=== PATIENT | female | born 1940 | race Caucasian/White ===

== ENCOUNTER 2019-05-05 07:11 | Inpatient (IN) ==
--- NOTE | 2019-05-05 07:46 | Emergency Department Note ---
Fall HPI - General Chief Complaint: Fall Stated Complaint: Fall Yesterday; Right Hip Pain Time Seen by Provider: 05/05/19 07:36 Source: patient, EMS Mode of arrival: EMS Limitations: no limitations - History of Present Illness HPI Narrative: 78-year-old female comes [facility] from [facility] [place] for right hip pain. Apparently she fell yesterday after walking and tripping. She did not hit her head or lose consciousness. She denies any neck pain. Was sent over to [facility] for evaluation and then sent back. She do es have some underlying dementia and so cannot give me most complete history but is able to tell me whether or not she is in pain. She is also having pain at the right foot which was x-rayed yesterday but I do not have results of that - Related Data Allergies Allergy/AdvReac Type Severity Reaction Status Date / Time shellfish derived Allergy Unknown Unknown Verified 05/05/19 07:12 Review of Systems All systems ED: reviewed and negative except as stated. Fall PMH - Past Medical History Attestation: Yes: The following information was validated with the patient. Medical history: Reports: CVA, DM, hypertension, hypothyroidism Surgical history ED: Reports: other (nephrectomy) - Social History smoking status: Never smoker Physical Exam No acute distress resting. I did examine her entire right lower leg she does have tenderness at the forefoot. I do not however see any excessive edema contusion or other signs of trauma relative to the left. Her left hip area is also tender laterally. Again I do not see any deformity there. Normal posterior tibialis pulse. Limitations: no limitations Course Vital Signs Temperature 98.2 F 05/05/19 07:13 Pulse Rate 91 H 05/05/19 07:13 Respiratory Rate 18 05/05/19 07:13 Blood Pressure 145/61 05/05/19 07:13 Pulse Oximetry (%) 96 05/05/19 07:13 Temperature 98.2 F 05/05/19 07:13 Pulse Rate 93 H 05/05/19 08:46 Respiratory Rate 18 05/05/19 07:13 Blood Pressure 156/72 05/05/19 08:46 Pulse Oximetry (%) 94 05/05/19 08:46 Fall - Lab Data Result diagrams: 05/05/19 08:15 05/05/19 08:15 - Radiology Data Radiology results reviewed: Yes I reviewed the patient's radiology results. Right hip x-ray shows intertrochanteric fracture with displacement Chest x-ray shows no acute infiltrate but perhaps CHF with increased pulmonary vascular markings Second phalanx fracture at the right foot is noted - EKG Data EKG attestation: Yes I reviewed and interpreted this EKG. 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 I discussed these findings with her Paulino Paz. He is agreeable with proceeding with surgery so orthopedics will be contacted, Dr. Warren Right foot fractures also noted of the second phalanx Dr. Warren agreed to consult on the patient if hospitalist will admit-plan on repairing that hip either tonight or tomorrow. I discussed the case with Dr. Evans, hospitalist. He agreed to accept the patient Disposition: Xfer As Inpt ([facility]) Condition: Fair Referrals: Lex Warren MD [Physician] - Андрей Evans MD [Physician] -
--- NOTE | 2019-05-05 08:46 | XRay Report ---
CLINICAL INFORMATION: Trauma COMPARISON: None. FINDINGS: A severely comminuted intertrochanteric fracture right hip with moderate coxa vera angulation. Femoral diaphyseal fragment is displaced 1 cm laterally and anteriorly. Mild degeneration noted and moderate SI degeneration. No soft tissue abnormality IMPRESSION: Severely comminuted intertrochanteric fracture right hip with mild displacement and coxa vera angulation Interpreted and Authenticated by: Arsen Martines 05/05/19
--- NOTE | 2019-05-05 08:47 | XRay Report ---
CLINICAL INFORMATION: Trauma COMPARISON: None. FINDINGS: The heart size, mediastinum and pulmonary vessels are unremarkable. The lungs are clear. There are no effusions. The bones and soft tissues are within normal limits. IMPRESSION: Normal chest. Interpreted and Authenticated by: Arsen Mratines 05/05/19
--- NOTE | 2019-05-05 08:52 | XRay Report ---
CLINICAL INFORMATION: Trauma COMPARISON: None. FINDINGS: Marked diffuse soft tissue swelling appreciated likely posttraumatic edema. There appears be a poorly defined comminuted fracture of the second proximal phalanx with minimal displacement and slight impaction. No other fracture identified. Hammertoe deformities in the second through fifth digits noted. There is severe degenerative change in the first and fourth MTT joints and mild degenerative change in the interphalangeal joints. Pes planus noted. Ossification of the Achilles and plantar tendon insertions appreciated IMPRESSION: 1. Poorly defined acute appearing fracture through the second proximal phalanx with slight impaction and angulation. Please correlate with point tenderness in this area. 2. Marked diffuse soft tissue swelling likely posttraumatic edema 3. Hammertoe deformities second through fifth digits 4. Severe degenerative change in the MTT and mild degenerative change in all interphalangeal joints Interpreted and Authenticated by: Arsen Martines 05/05/19
[2019-05-05 09:23] LABS: Basophils # (Auto) 0 K/mcL (0.0-0.3); Basophils % (Auto) 0.3 % (0.0-2.0); Eosinophils # (Auto) 0.5 K/mcL (0.0-0.7); Eosinophils % (Auto) 5.5 % (0.0-7.0); Granulocytes % (Auto) 76.7 % (38.0-78.0); Hematocrit 26.4 % (36.0-48.0); Hemoglobin 8.4 g/dL (12.0-15.0); Lymphocytes # (Auto) 1.1 K/mcL (1.5-4.8); Lymphocytes % (Auto) 12.3 % (15.5-49.0); Mean Cell Volume 91.3 fL (80.0-100.0); Mean Platelet Volume 7.7 fL (7.4-10.4); Monocytes # (Auto) 0.5 K/mcL (0.1-0.9); Monocytes % (Auto) 5.2 % (1.0-12.0); Platelet Count 378 K/mcL (140-440); RBC 2.88 M/mcL (4.00-5.20); Red Cell Distribution Width 16.2 % (11.5-14.5); WBC 9.1 K/mcL (4.5-11.0)
[2019-05-05 09:32] LABS: INR 1.1 (0.9-1.1); Prothrombin Time 14.6 sec (11.9-14.5)
[2019-05-05 09:48] LABS: ALT/SGPT 8 U/l (0-40); AST/SGOT 10 U/l (0-37); Albumin 2.8 gm/dL (3.2-5.2); Albumin/Globulin Ratio 0.9 (1.0-2.3); Alkaline Phosphatase 61 U/L (39-117); Bilirubin,Total 0.3 mg/dL (0.0-1.0); Blood Urea Nitrogen 19 mg/dl (8-23); Calcium 8.4 mg/dl (8.6-10.4); Carbon Dioxide 25 mmol/L (22-30); Chloride 108 mmol/L (96-108); Globulin 3.1 gm/dL (2.2-3.7); Glomerular Filtration Rate 44; Glucose 177 mg/dL (70-105); Potassium 4.6 mmol/L (3.3-5.1); Sodium 142 mmol/L (133-145)
[2019-05-05] MEDS ORDERED: oxyCODONE HCL 5 MG TABLET PO PRN (11:46)
[2019-05-05] MEDS ORDERED: ACETAMINOPHEN 325 MG TABLET PO SCH (11:46)
[2019-05-05] MEDS ORDERED: ONDANSETRON 4 MG/2 ML VIAL IV PRN (11:46)
[2019-05-05] MEDS ORDERED: ALBUTEROL SULFATE 2.5 MG/3 ML NEBULIZER NEB PRN (11:46)
[2019-05-05] MEDS ORDERED: HYDROmorphone 2 MG/ML VIAL IV PRN (11:46)
[2019-05-05] MEDS ORDERED: NALOXONE HCL 0.4 MG/ML VIAL IV PRN (11:46)
[2019-05-05] MEDS: HEPARIN 5,000 UNIT/ML VIAL SQ SCH ×2 (12:23→21:26)
[2019-05-05] MEDS ORDERED: DEXTROSE 31 GM ORAL.SUSP PO PRN (13:05)
[2019-05-05] MEDS ORDERED: DEXTROSE 50% 50 ML VIAL IV PRN (13:05)
[2019-05-05 13:33] LABS: Appearance,Urine CLOUDY; Bacteria,Urine MANY /hpf (0); Bilirubin,Urine NEG (NEG); Color,Urine YELLOW; Culture Indicated,Urine NO; Glucose,Urine (UA) NEGATIVE (NEG); Ketones,Urine NEG (NEG); Leukocyte Esterase,Urine 250 /uL (NEG); Nitrate,Urine NEG (NEG); Protein,Urine 30 mg/dL (NEG); Specific Gravity,Urine 1.015 (1.000-1.035); Urine Blood 0.2 mg/dL (<0.03); Urine RBC 8 /hpf (0-1); Urine Squamous Epithelial Cell 12 /hpf (0-4); Urine WBC > 182 /hpf (0-4); Urobilinogen,Urine NEG (NEG)
--- NOTE | 2019-05-05 13:39 | Internal Med History&Physical ---
Medical - H&P: HPI Patient information: Note initiated : 05/05/19 at 1:36 pm Service Date, if different from initiated Date: [] Patient: Kaitlin Paz a 78 y/o F admitted on 05/05/19 for Fall Yesterday; Right Hip Pain. Chief Complaint: [] History of present illness: Ms. Paz is a 78 year old F with history of diabetes, history of CVA, questionable memory issues presents to the emergency room today from her halfway for evaluation of left hip pain. It seems that the patient fell down yesterday which was a mechanical fall. I think she was evaluated at an urgent care center, and ankle x-ray was done which was negative and she was sent back to the halfway. Because of the pain and inability to ambulate well the patient was sent to the emergency room here. The patient denies any injury to the head, denies any injury anywhere else. She has left hip pain which is worse with activity pain is moderate at this time. Nonradiating. Improved with pain meds worse with activity. In the emergency room patient on presentation was hemodynamically stable, labs show WBC count of 9, hemoglobin 8.4, it was 8.3 at discharge from [facility] around 10 days ago. Platelets 378, INR 1.1, chemistries show a creatinine of 1.2 this was 0.912 days ago. UA is positive leuk estearse, wbc EKG shows sinus rhythm nonspecific T wave changes in the lateral leads. Chest x-ray is negative Hip x-ray shows fracture of the femur neck left Patient is being admitted to the hospital for further management, Dr. Mendes has evaluated the patient plans for surgery tomorrow The patient was at [facility] for nephrectomy, she had xanthogranulomatous pyelonephritis, left side, she underwent a laparoscopic nephrectomy, postop was complicated with hemorrhage, needing around 5 to 6 units of blood and FFP. At the time of discharge patient was hemodynamically stable and sent to a halfway. Before this surgery, the patient notes that she was fairly active, able to do all her activities of daily living, able to climb a 1-2 flights of stairs without any chest pain or significant shortness of breath. She admits to having a history of stroke, no history of heart failure no history of myocardial infarction, she does have mild renal dysfunction but her creatinine is less than 2. She is diabetic. All systems: reviewed and no additional remarkable complaints except as stated (as per hpi rest neg) Medical - H&P: PMH Medical history: Xanthogranulomatous pyelonephritis, status post left nephrectomy Diabetes Chronic lower extremity edema History of CVA Depression History of recurrent UTIs Hypothyroidism Surgical history: Status post left nephrectomy Family history: reviewed and not pertinent Social history: Presently lives in a halfway but previously was residing with her son-in-law and daughter Non-smoker No recreational drug use Medical - H&P: Meds Home Medications Medication Instructions Recorded Confirmed Type Aspirin [Lite Coat Aspirin] 81 mg PO DAILY 05/05/19 05/05/19 History Benazepril [Lotensin] 10 mg PO HS 05/05/19 05/05/19 History Ciprofloxacin [Cipro] 500 mg PO BID 05/05/19 05/05/19 History Citalopram [Celexa] 20 mg PO HS 05/05/19 05/05/19 History Docusate Sodium 250 mg PO DAILYP PRN 05/05/19 05/05/19 History Levothyroxine [Synthroid] 100 mcg PO DAILY 05/05/19 05/05/19 History Methenamine Hippurate [Hiprex] 1 gm PO BID 05/05/19 05/05/19 History Venlafaxine [Effexor Xr] 150 mg PO DAILY 05/05/19 05/05/19 History metFORMIN HCL [Metformin HCl] 500 mg PO BID 05/05/19 05/05/19 History Allergies Allergy/AdvReac Type Severity Reaction Status Date / Time shellfish derived Allergy Unknown Unknown Verified 05/05/19 07:12 Medical - H&P: Exam - Constitutional Vitals: Temp Pulse Resp BP Pulse Ox 98.2 F 90 20 153/69 95 05/05/19 12:00 05/05/19 12:00 05/05/19 12:00 05/05/19 12:00 05/05/19 12:00 Exam: GENERAL: The patient is a well-developed, well-nourished in no apparent distress. Is alert and oriented x3. VITAL SIGNS: Reviewed and as noted elsewhere. HEENT: Head is normocephalic and atraumatic. Extraocular muscles are intact. Pupils are equal, round, and reactive to light. Nares appeared normal. Mouth appears any without lesions. Mucous membranes are dry. NECK: Normal to inspection, Supple, No lymphadenopathy or thyromegaly. LUNGS: Air entry equal on both sides, no wheezing, crackles or rhonchi noted. No accessory muscles of respiration, on anterior and lateral chest side HEART: Regular rate and rhythm normal, S1 and S2 heard, no Gallop, S3 or Rub Noted, No Gross murmur heard. ABDOMEN: Soft, nontender, and nondistended. Positive bowel sounds. No hepatosplenomegaly was noted. EXTREMITIES: No cyanosis, clubbing, rash, lesions or edema. NEUROLOGIC: Cranial nerves II through XII are grossly intact. Motor and Sensory System Grossly Intact, limited exam due to fracture PSYCHIATRIC: Normal affect, Normal Mood. Appropriate Behavior. SKIN: No ulceration or wounds noted, No jaundice, No rash noted. Medical - H&P: Reslt - Labs CBC & Chem 7: 05/05/19 08:15 05/05/19 08:15 Labs: Short CBC 05/05/19 Range/Units 08:15 WBC 9.1 (4.5-11.0) K/mcL Hgb 8.4 L (12.0-15.0) g/dL Hct 26.4 L (36.0-48.0) % Plt Count 378 (140-440) K/mcL BMP 05/05/19 08:15 Sodium 142 Potassium 4.6 Chloride 108 Carbon Dioxide 25 BUN 19 Creatinine 1.2 H Glucose 177 H Calcium 8.4 L Liver Function 05/05/19 Range/Units 08:15 Total Bilirubin 0.3 (0.0-1.0) mg/dL AST 10 (0-37) U/l ALT 8 (0-40) U/l Alkaline Phosphatase 61 (39-117) U/L Albumin 2.8 L (3.2-5.2) gm/dL Urine 05/05/19 Range/Units 12:26 Urine Color Yellow Urine Appearance Cloudy Urine pH 5.0 (5.0-9.0) Ur Specific Fraser 1.015 (1.000-1.035) Urine Protein 30 A (NEG) mg/dL Urine Glucose (UA) Negative (NEG) mg/dL Medical - H&P: A/P - Narrative A/P Narrative: A/P Hip fracture Left side -Plan for Surgery in AM Pre op risk -RCRI 2, given age, cva, DM, patient is high risk for cardiovascular complications in periop period, reviewed same with the patient -to continue asa post op -patient has no modifiable risk factors, no further testing needed before surgery -MET was > 4 before her nephrectomy surgery last month. Anemia -Hb low, but stable, did loose quite a bit of blood during her stay for nephrectomy, will monitor, she may need blood transfusion post op, presently no such indication. DM -SSI insulin for glucose control acute kidney injury -creat is 1.2, was 0.9, slight worsening, IV hydration -single kidney stays H/o Recurrent UTI, UA suggestive of UTI -IV Rocephin for now, smita given plan for hip surgery, will send for culture Malnutrition -albumin is 2.8, but was 2.2 12 days ago, improving Hypothyroidism/Depression -resume home meds once able Diet carb consistent full code, npo mn DVT hep sq,for now
[2019-05-05] MEDS: ACETAMINOPHEN 500 MG TABLET PO SCH ×4 (13:40→21:27)
[2019-05-05] MEDS: 0.9 % SODIUM CHLORIDE 10 ML SYRINGE IV SCH ×2 (13:40→21:36)
[2019-05-05] MEDS: 0.45 % SODIUM CHLORIDE 1,000 ML IV SCH (15:02)
[2019-05-05] MEDS: cefTRIAXone 1 GM VIAL IV SCH (15:02)
[2019-05-05] MEDS ORDERED: 0.9 % SODIUM CHLORIDE 250 ML IV SCH (15:30)
[2019-05-05] MEDS: INSULIN LISPRO 1 UNIT/0.01 ML UNIT SQ SCH ×2 (16:48→21:27)
[2019-05-05] MEDS ORDERED: SENNOSIDES 1 TABLET PO SCH (21:00)
[2019-05-06] MEDS: 0.9 % SODIUM CHLORIDE 10 ML SYRINGE IV SCH ×3 (04:36→21:14)
[2019-05-06] MEDS: 0.45 % SODIUM CHLORIDE 1,000 ML IV SCH (04:36)
[2019-05-06 06:09] LABS: Basophils # (Auto) 0.1 K/mcL (0.0-0.3); Basophils % (Auto) 0.8 % (0.0-2.0); Eosinophils # (Auto) 0.9 K/mcL (0.0-0.7); Eosinophils % (Auto) 12.3 % (0.0-7.0); Granulocytes % (Auto) 62.8 % (38.0-78.0); Hematocrit 26.2 % (36.0-48.0); Hemoglobin 8.4 g/dL (12.0-15.0); Lymphocytes # (Auto) 1.3 K/mcL (1.5-4.8); Lymphocytes % (Auto) 17.5 % (15.5-49.0); Mean Cell Volume 91.8 fL (80.0-100.0); Mean Platelet Volume 7.5 fL (7.4-10.4); Monocytes # (Auto) 0.5 K/mcL (0.1-0.9); Monocytes % (Auto) 6.6 % (1.0-12.0); Platelet Count 301 K/mcL (140-440); RBC 2.85 M/mcL (4.00-5.20); Red Cell Distribution Width 16.3 % (11.5-14.5); WBC 7.5 K/mcL (4.5-11.0)
[2019-05-06 06:40] LABS: ALT/SGPT 7 U/l (0-40); AST/SGOT 11 U/l (0-37); Albumin 2.4 gm/dL (3.2-5.2); Albumin/Globulin Ratio 0.8 (1.0-2.3); Alkaline Phosphatase 57 U/L (39-117); Bilirubin,Direct < 0.2 mg/dL (0.0-0.3); Bilirubin,Total 0.3 mg/dL (0.0-1.0); Blood Urea Nitrogen 17 mg/dl (8-23); Calcium 8.1 mg/dl (8.6-10.4); Carbon Dioxide 21 mmol/L (22-30); Chloride 107 mmol/L (96-108); Globulin 3.1 gm/dL (2.2-3.7); Glomerular Filtration Rate 49; Glucose 128 mg/dL (70-105); Lactate Dehydrogenase 241 U/L (94-250); Magnesium 1.6 mg/dL (1.6-2.5); Phosphorous 3.4 mg/dL (2.7-4.5); Potassium 4.5 mmol/L (3.3-5.1); Sodium 139 mmol/L (133-145); Triglycerides 120 mg/dl (<150); Uric Acid 5.9 mg/dL (2.5-8.0)
[2019-05-06] MEDS: INSULIN LISPRO 1 UNIT/0.01 ML UNIT SQ SCH ×4 (07:35→21:19)
[2019-05-06] MEDS: ACETAMINOPHEN 500 MG TABLET PO SCH ×3 (09:36→21:09)
[2019-05-06] MEDS: cefTRIAXone 1 GM VIAL IV SCH (10:03)
[2019-05-06] MEDS ORDERED: ceFAZolin 2 GM in DEXTROSE 5% IN WATER 50 ML IV SCH (10:30)
--- NOTE | 2019-05-06 10:30 | Internal Med Progress Note ---
Medical - PN: Subj Patient information: Note initiated : 05/06/19 at 10:27 am Service Date, if different from initiated Date: [] Patient: Kaitlin Paz 78 y/o F admitted on 05/05/19 for IM Nailing of Right Femur*Gamma Nail-Trell*. Chief Complaint: [] Interval history: Ms. Paz is a 78 year old F with history of diabetes, history of CVA, questionable memory issues presents [facility] the emergency room [facility] evaluation of left hip pain. It seems that the patient fell down yesterday which was a mechanical fall. I think she was evaluated at an urgent care center, and ankle x-ray was done which was negative and she was sent back to the jail. Because of the pain and inability to ambulate well the patient was sent to the emergency room here. The patient denies any injury to the head, denies any injury anywhere else. She has left hip pain which is worse with activity pain is moderate at this time. Nonradiating. Improved with pain meds worse with activity. In the emergency room patient on presentation was hemodynamically stable, labs show WBC count of 9, hemoglobin 8.4, it was 8.3 at discharge from [facility] around 10 days ago. Platelets 378, INR 1.1, chemistries show a creatinine of 1.2 this was 0.912 days ago. UA is positive leuk estearse, wbc EKG shows sinus rhythm nonspecific T wave changes in the lateral leads. Chest x-ray is negative Hip x-ray shows fracture of the femur neck left Patient is being admitted to the hospital for further management, Dr. Mendes has evaluated the patient plans for surgery tomorrow The patient was at [facility] for nephrectomy, she had xanthogranulomatous pyelonephritis, left side, she underwent a laparoscopic nephrectomy, postop was complicated with hemorrhage, needing around 5 to 6 units of blood and FFP. At the time of discharge patient was hemodynamically stable and sent to a jail. Before this surgery, the patient notes that she was fairly active, able to do all her activities of daily living, able to climb a 1-2 flights of stairs without any chest pain or significant shortness of breath. She admits to having a history of stroke, no history of heart failure no history of myocardial infarction, she does have mild renal dysfunction but her creatinine is less than 2. She is diabetic. 05/06 Pt seen examined,no acute issues, did not endorse any pain today Surgery planned today, no new issues reported, labs stable Pertinent ROS: Denies headache, dizziness Denies chest pain, palpitations Denies cough or shortness of breath Denies abdominal pain, nausea or vomiting. - Constitutional Vitals: Vital Signs Temp Pulse Resp BP Pulse Ox 97.7 F 81 18 144/73 96 05/06/19 08:00 05/06/19 08:00 05/06/19 08:00 05/06/19 08:00 05/06/19 08:00 Period Temp Pulse Resp BP Sys/Farah Pulse Ox Last 24 Hr 97.7 F-98.5 F 76-93 16-20 126-155/56-73 94-97 Intake and Output 05/05/19 05/06/19 05/06/19 21:59 05:59 13:59 Intake Total 50 1150 Output Total 150 325 Balance -100 825 Weight 202 lb 8 oz Intake & Output: Intake & Output 05/05/19 05/06/19 05/06/19 21:59 05:59 13:59 Intake Total 50 1150 Output Total 150 325 Balance -100 825 Weight 202 lb 8 oz Intake: IV 1000 Sodium Chloride 0.45% 1,000 ml 1000 @ 75 mls/hr IV .[id number] [facility] Rx# :[id number] Oral 50 150 Output: Urine Catheter Amount 150 325 Other: Meal Dinner Percent of Meal Consumed 100% Feeding Ability Independent Urine Appearance Sediment Sediment Uretheral (López) Sediment Urine Color Dark Yellow Dark Yellow Uretheral (López) Dark Yellow Urine Odor Strong Exam: Constitutional; Afebrile, cooperative, alert, not in distress. Respiratory system: Air Entry equal on both sides, No crackles or wheezing, no rhonchi. CVS- Rate rhythm regular, S1,S2 heard, no gallop, no rub. Abdomen- Soft nontender abdomen, no organomegaly, no tenderness, no guarding or rigidity, AIR TRAFFIC COORDINATOR- AOOx3, moving all extremities, no gross focal deficit noted. Medical - PN: Obj Da - Labs CBC & Chem 7: 05/06/19 05:05 05/06/19 05:05 Labs: Abnormal Lab Results 05/06/19 05/06/19 05/05/19 05:05 05:05 12:26 RBC 2.85 L Hgb 8.4 L Hct 26.2 L RDW 16.3 H Lymph % (Auto) Eos % (Auto) 12.3 H Lymph # (Auto) 1.3 L Eos # (Auto) 0.9 H PT Carbon Dioxide 21 L Creatinine Glucose 128 H Calcium 8.1 L Total Protein 5.5 L Albumin 2.4 L Albumin/Globulin Ratio 0.8 L Urine Protein 30 A Urine Occult Blood 0.2 A Ur Leukocyte Esterase 250 A Urine RBC 8 H Urine WBC > 182 H Ur Squamous Epith Cells 12 H Urine Bacteria Many A 05/05/19 05/05/19 05/05/19 08:15 08:15 08:15 RBC 2.88 L Hgb 8.4 L Hct 26.4 L RDW 16.2 H Lymph % (Auto) 12.3 L Eos % (Auto) Lymph # (Auto) 1.1 L Eos # (Auto) PT 14.6 H Carbon Dioxide Creatinine 1.2 H Glucose 177 H Calcium 8.4 L Total Protein Albumin 2.8 L Albumin/Globulin Ratio 0.9 L Urine Protein Urine Occult Blood Ur Leukocyte Esterase Urine RBC Urine WBC Ur Squamous Epith Cells Urine Bacteria Meds: Medications Acetaminophen (Tylenol) 1,000 mg PO TID [facility] Last Admin: 05/06/19 09:36 Dose: Not Given Documented by: Albuterol Sulfate (Ventolin) 2.5 mg NEB Q2HP PRN PRN Reason: Shortness Of Breath Ceftriaxone Sodium (Rocephin) 1 gm IV Q24H [facility]; Protocol Last Admin: 05/06/19 10:03 Dose: 1 gm Documented by: Dextrose (Dextrose 50%) 0 ml IV UD PRN PRN Reason: Hypoglycemia Diagnostic Test (Pha) (Accu-Chek) 1 each FS ACHS [facility] Last Admin: 05/06/19 07:34 Dose: 1 each Documented by: Glucose (Insta-Glucose) 15 gm PO PRN PRN PRN Reason: Hypoglycemia Hydromorphone HCl (Dilaudid) 0.5 mg IV Q2HP PRN PRN Reason: PAIN LEVEL > 6 Sodium Chloride (Sodium Chloride 0.45%) 1,000 mls @ 75 mls/hr IV .[id number] [facility] Stop: 05/06/19 16:39 Last Admin: 05/06/19 04:36 Dose: 75 mls/hr Documented by: Insulin Human Lispro (Humalog) 0 unit SQ ACHS [facility]; Protocol Last Admin: 05/06/19 07:35 Dose: Not Given Documented by: Naloxone HCl (Narcan) 0.1 mg IV Q2MIN PRN PRN Reason: Opiate Reversal Ondansetron HCl (Zofran) 4 mg IV Q6HP PRN PRN Reason: Nausea And Vomiting Oxycodone HCl (Roxicodone) 5 mg PO Q4HP PRN PRN Reason: PAIN LEVEL 3-6 Last Admin: 05/05/19 16:00 Dose: 5 mg Documented by: Senna (Senokot) 2 tab PO HS [facility] Last Admin: 05/05/19 21:26 Dose: 2 tab Documented by: Sodium Chloride (Saline Flush) 10 ml IV Q8 [facility] Last Admin: 05/06/19 04:36 Dose: 10 ml Documented by: Medical - PN: A/P - Time Spent With Patient Total time spent is greater than 50% in coordination of care (as documented) at patient's floor/unit and/or counseling patient: - Narrative A/P Narrative: A/P Hip fracture Left side -Plan for Surgery today Pre op risk -RCRI 2, given age, cva, DM, patient is high risk for cardiovascular compli cations in periop period, reviewed same with the patient -to continue asa post op -patient has no modifiable risk factors, no further testing needed before surgery -MET was > 4 before her nephrectomy surgery last month. Anemia -Hb stable, monitor, DM -SSI insulin for glucose control acute kidney injury -creat is 1.1, continue gentle hydration. H/o Recurrent UTI, UA suggestive of UTI -IV Rocephin for now, smita given plan for hip surgery, will send for culture Malnutrition -albumin is 2.8, at 2.4 today, get dietary consult to see if we can improve her nutrition. Hypothyroidism/Depression -resume home meds once able Diet carb consistent after surgery. full code, DVT hep sq, post of dvt prophylaxis per surgery. Medical - PN: Qual - VTE Deep Vein Thrombosis/Pulmonary Embolism Present on Admission: No
--- NOTE | 2019-05-06 10:59 | Consultation ---
DATE OF CONSULTATION: 05/05/2019 HISTORY OF PRESENT ILLNESS: This is a 78-year-old who had a fall about 2 days ago and was found to be unable to bear weight, was seen in the emergency room today where she was found to have an intertrochanteric hip fracture, 2 part with substantial osteopenia. Her chief complaint is right hip pain. She has been unable to bear weight for 2 days. She has had no chest pain or shortness of breath but has not eaten well because of the pain. She has quite a bit of swelling in the lower extremities, but was ambulatory around the facility using her walker. She is able to transfer. She can walk up to 100 feet. PAST MEDICAL HISTORY: She has been fairly immobile because of other pains and limitations. PAST SURGICAL HISTORY: She is not quite aware of and she is a poor historian. She does not know her medication list. As far as when she last ate or drank, she recalls this morning, she had her vitamins only. ALLERGIES: SHE LISTS NONE. PHYSICAL EXAMINATION: GENERAL: Very pleasant 78-year-old female in bed in no acute distress but points to her hip as being painful. CARDIOVASCULAR: Does confirm tachycardia with an occasional irregular beat. I do not hear any murmurs, rubs, or gallops. Her pulse is firm. Good capillary refill in upper and lower extremities with a lot of swelling in the lower extremity, most likely dependent edema and no open wounds, lacerations or abrasions are seen. The right leg is shortened and externally rotated on the right lower extremity. TEST REVIEW: Her x-rays of the right hip demonstrate three views with an intertrochanteric hip fracture and substantial displacement. It extends into the lesser trochanter with substantial shortening and varus malformation. There is no callus formation as of yet, I do not see any tumors. There is age-related osteopenia. Impression of the x-rays right intertrochanteric hip fracture with age-related osteopenia and acute fracture. DIAGNOSIS: Acute fracture, right hip. PLAN: Treatment will be intertrochanteric hip fracture open reduction and IM nailing with a gamma nail. Once this patient can be cleared by hospitalist, we will proceed. The EKG does show a pulse rate of [address] changes and no atrial fibrillation. She is not on any blood thinners. Her white count is 9.1, hematocrit is 26.4, her albumin is low as well as her protein content. Her INR at 1.1. Her GFR for her kidney function is also low at 44. She has glucose of 177 indicating she is diabetic. BUN 19, creatinine 1.2, her albumin level is 2.8, which is malnourished. At this point, we will see if she is a better candidate to hydrate her and to see if her kidney function does not respond on hydration. If we can do that today, we will fix her this afternoon or early in the morning. It seems as if the fracture is a couple days old already. Her hematocrit being 26 is low. She understands the risks and benefits and agrees to proceed. We will just make sure the hospitalist is okay with proceeding things. RB[facility]:conor Job ID: [id number] Doc ID: [id number] Lex Warren MD
[2019-05-06] MEDS ORDERED: DEXAMETHASONE 10 MG/ML VIAL IV ONE (13:00)
[2019-05-06] MEDS ORDERED: LIDOCAINE HCL/PF 100 MG/5 ML SYRINGE IV ONE (13:00)
[2019-05-06] MEDS ORDERED: MIDAZOLAM 2 MG/2 ML VIAL IV ONE (13:00)
[2019-05-06] MEDS ORDERED: GLYCOPYRROLATE 0.2 MG/ML VIAL IV ONE (13:00)
[2019-05-06] MEDS ORDERED: ONDANSETRON 4 MG/2 ML VIAL IV ONE (13:00)
[2019-05-06] MEDS ORDERED: PROPOFOL 200 MG/20 ML VIAL IV ONE (13:00)
[2019-05-06] MEDS ORDERED: fentaNYL 100 MCG/2 ML VIAL IV ONE (13:00)
[2019-05-06] MEDS ORDERED: PHENYLEPHRINE 10 MG/ML VIAL IV ONE (13:00)
[2019-05-06] MEDS ORDERED: KETAMINE 100 MG/ML ML IV ONE (13:00)
[2019-05-06] MEDS ORDERED: HYDROmorphone 2 MG/ML VIAL IV PRN (14:14)
[2019-05-06] MEDS ORDERED: MAGNESIUM HYDROXIDE 30 ML ORAL.SUSP PO PRN (14:14)
[2019-05-06] MEDS ORDERED: FLEETS ADULT ENEMA PR PRN (14:14)
[2019-05-06] MEDS ORDERED: POLYETHYLENE GLYCOL 3350 17 GM PACKET PO PRN (14:14)
[2019-05-06] MEDS ORDERED: ONDANSETRON 4 MG/2 ML VIAL IV PRN ×2 (14:14→14:18)
[2019-05-06] MEDS ORDERED: KETOROLAC 15 MG/ML VIAL IV PRN (14:14)
[2019-05-06] MEDS ORDERED: HYDROcodone/APAP 10/325MG TABLET PO PRN (14:14)
[2019-05-06] MEDS ORDERED: BISACODYL 10 MG SUPP.RECT PR PRN (14:14)
[2019-05-06] MEDS ORDERED: BENZOCAINE/MENTHOL 1 LOZENGE PO PRN ×2 (14:14→14:18)
[2019-05-06] MEDS ORDERED: ACETAMINOPHEN 325 MG TABLET PO PRN (14:14)
[2019-05-06] MEDS ORDERED: TEMAZEPAM 15 MG CAPSULE PO PRN (14:14)
[2019-05-06] MEDS ORDERED: TRANEXAMIC ACID 1,000 MG/10 ML VIAL IV ONE (14:14)
[2019-05-06] MEDS ORDERED: NALOXONE HCL 0.4 MG/ML VIAL IV PRN (14:18)
[2019-05-06] MEDS ORDERED: IPRATROPIUM/ALBUTEROL 3 ML AMPUL.NEB NEB PRN (14:18)
[2019-05-06] MEDS ORDERED: LACTATED RINGERS 250 ML IV PRN (14:18)
[2019-05-06] MEDS ORDERED: METHOCARBAMOL 1,000 MG/10 ML VIAL IV PRN (14:18)
[2019-05-06] MEDS ORDERED: fentaNYL 100 MCG/2 ML VIAL IV PRN (14:18)
[2019-05-06] MEDS ORDERED: FLUMAZENIL 0.1 MG/ML ML IV PRN (14:18)
[2019-05-06] MEDS ORDERED: DOCUSATE SODIUM 250 MG PO PRN (14:18)
[2019-05-06] MEDS ORDERED: MEPERIDINE 25 MG/ML SYRINGE IV PRN (14:18)
[2019-05-06] MEDS ORDERED: LACTATED RINGERS 1,000 ML IV SCH (14:30)
--- NOTE | 2019-05-06 14:47 | Operative Note ---
DATE OF OPERATION: 05/06/2019 PREOPERATIVE DIAGNOSIS: Right intertrochanteric hip fracture, displaced. POSTOPERATIVE DIAGNOSIS: Right intertrochanteric hip fracture, displaced. PROCEDURE: Right hip open reduction and internal fixation with a Gamma nail. SURGEON:. Lex Warren M.D. DRYWALL STRIPPER HELPER: Tito Benson PA-C. The PA's assistance was required for the safe and efficient completion of the entire case. This provider's expertise and technical skill were required throughout the case. The PA assisted with preoperative coordination, intraoperative retraction, wound closure, dressing and splint application, as well as postoperative documentation and care coordination. ANESTHESIA: General LMA anesthesia. COMPLICATIONS: None. ESTIMATED BLOOD LOSS: About 100 mL. IMPLANTS: A 34 Gamma nail with a 90 mm dynamic compression screw and two distal screws measuring 40 and 45 mm in length to lock the distal portion of the nail. DESCRIPTION OF PROCEDURE: The patient was brought to the operating room and put to sleep with general LMA anesthesia. Once asleep, the patient had the right hip sterilely prepped and draped in the usual sterile fashion and placed on the Faber table. Closed reduction was performed using the Faber table. As we were able to reduce this, we were able to then pass a starting guide centrally. We then reamed up to the size needed. We then placed a 34 cm nail with 125 degree neck angle. We placed a pin centrally in the head and compressed the fracture. We irrigated and locked distally with two screws, 40 and 45 mm. We irrigated thoroughly and then closed the wound with 2-0 Vicryl and rip. The patient tolerated this well. There were no complications. RBH:brandon Job ID: [id number] Doc ID: [id number] Lex Warren MD
--- NOTE | 2019-05-06 14:58 | XRay Report ---
CLINICAL INFORMATION: ORIF intertrochanteric fracture COMPARISON: Preoperative plain films 05/05/2019. FINDINGS: Comminuted intertrochanteric fracture is reduced to near anatomic alignment transfixed by gamma nail. IMPRESSION: ORIF intertrochanteric fracture in near anatomic alignment. Interpreted and Authenticated by: Arsen Martines 05/06/19
[2019-05-06] MEDS: metFORMIN 500 MG TABLET PO SCH (17:49)
[2019-05-06] MEDS ORDERED: LISINOPRIL 10 MG TABLET PO SCH (21:00)
[2019-05-06] MEDS: CITALOPRAM 20 MG TABLET PO SCH (21:09)
[2019-05-06] MEDS: DOCUSATE SODIUM 100 MG CAPSULE PO SCH (21:09)
[2019-05-06] MEDS: ASPIRIN 325 MG ENTERIC COATED TABLET PO SCH (21:09)
[2019-05-06] MEDS: SENNOSIDES 1 TABLET PO SCH (21:09)
[2019-05-07] MEDS ORDERED: 0.45 % SODIUM CHLORIDE 1,000 ML IV SCH (06:30)
[2019-05-07] MEDS: 0.9 % SODIUM CHLORIDE 10 ML SYRINGE IV SCH ×3 (07:00→21:02)
[2019-05-07] MEDS: LEVOTHYROXINE 100 MCG TABLET PO SCH (07:01)
[2019-05-07 07:24] LABS: Basophils # (Auto) 0 K/mcL (0.0-0.3); Basophils % (Auto) 0.4 % (0.0-2.0); Eosinophils # (Auto) 0 K/mcL (0.0-0.7); Eosinophils % (Auto) 0.1 % (0.0-7.0); Granulocytes % (Auto) 75.1 % (38.0-78.0); Hematocrit 20.1 % (36.0-48.0); Hemoglobin 6.4 g/dL (12.0-15.0); Lymphocytes # (Auto) 1.4 K/mcL (1.5-4.8); Lymphocytes % (Auto) 17.1 % (15.5-49.0); Mean Cell Volume 91.3 fL (80.0-100.0); Mean Corpuscular HGB Conc 31.6 g/dL (31.0-36.0); Mean Platelet Volume 7.7 fL (7.4-10.4); Monocytes # (Auto) 0.6 K/mcL (0.1-0.9); Monocytes % (Auto) 7.3 % (1.0-12.0); Platelet Count 300 K/mcL (140-440); Red Cell Distribution Width 16.7 % (11.5-14.5); WBC 8.2 K/mcL (4.5-11.0)
[2019-05-07] MEDS ORDERED: 0.9 % SODIUM CHLORIDE 250 ML IV SCH (07:30)
--- NOTE | 2019-05-07 07:30 | Orthopedic Progress Note ---
Subjective Patient information: Note initiated : 05/07/19 at 7:28 am Service Date, if different from initiated Date: [] Patient: Kaitlin Paz 78 y/o F admitted on 05/05/19 for IM Nailing of Right Femur*Gamma Nail-Trell*. Chief Complaint: [Pt is stable this morning on post operative day 1 without any significant concerns or complaints. Patients vital signs have remained stable. Patients dressing is dry and is grossly intact from a neur ovascular and motor standpoint. Patients 10 point ROS is otherwise negative. ] Objective Vital signs: Vital Signs Temp Pulse Resp BP BP Pulse Ox 05/07/19 06:00 95 05/07/19 04:08 93 05/07/19 04:00 86 L 05/07/19 03:59 97.6 F 64 16 103/56 05/07/19 02:00 94 05/06/19 22:58 98.6 F 87 18 109/61 99 05/06/19 19:00 98.4 F 90 20 122/66 97 05/06/19 18:00 94 05/06/19 17:20 97.8 F 94 H 16 117/74 97 05/06/19 16:40 98 H 16 132/79 96 05/06/19 16:15 95 05/06/19 16:10 94 H 16 134/78 95 05/06/19 15:55 98 H 16 124/80 94 05/06/19 15:40 100 H 16 130/81 95 05/06/19 15:25 98 H 16 133/78 96 05/06/19 15:10 97.8 F 97 H 16 129/87 96 05/06/19 15:00 98.2 F 93 H 18 143/69 99 05/06/19 14:50 97.2 F 95 H 20 143/73 97 05/06/19 14:35 97.2 F 82 21 157/83 100 05/06/19 14:34 82 19 151/82 100 05/06/19 14:25 83 17 142/70 162/83 100 05/06/19 14:20 97.3 F 88 16 162/83 95 05/06/19 12:00 97.8 F 80 18 138/72 96 05/06/19 08:00 97.7 F 81 18 144/73 96 Intake and Output 06/09/1405/07/19 05/07/19 21:59 05:59 13:59 Intake Total 2410 790 Output Total 150 150 Balance 2260 640 Intake: IV 1000 Oral 510 790 IV - Manual Only 900 Output: Urine Catheter Amount 150 150 Other: Meal Dinner Percent of Meal Consumed 100% Feeding Ability Independent Urine Appearance Cloudy Clear Clear Uretheral (López) Cloudy Urine Color Dark Nevin Dark Yellow Straw Uretheral (López) Dark Yellow Urine Odor Foul Uretheral (López) Strong Weight 209 lb Intake & Output: Intake & Output 05/06/19 05/07/19 05/07/19 21:59 05:59 13:59 Intake Total 2410 790 Output Total 150 150 Balance 2260 640 Weight 209 lb Intake: IV 1000 Oral 510 790 IV - Manual Only 900 Output: Urine Catheter Amount 150 150 Other: Meal Dinner Percent of Meal Consumed 100% Feeding Ability Independent Urine Appearance Cloudy Clear Clear Uretheral (López) Cloudy Urine Color Dark Nevin Dark Yellow Straw Uretheral (López) Dark Yellow Urine Odor Foul Uretheral (López) Strong Incision: Yes healing Incision clean and dry: Yes Dressing: Yes clean Weight bearing status: full Neurological exam IM: Yes motor sensory intact, Yes neurovascular intact Extremities exam IM: Yes Foot pink and warm, Yes neurovascular intact Additional Comments: low H&H this am and Hosptialist wants to transfuse - Labs CBC & BMP: 05/07/19 04:35 05/06/19 05:05 Labs: Orthopedic Labs 05/05/19 08:15 PT 14.6 H INR 1.1 05/07/19 05/07/19 05/06/19 04:35 04:35 05:05 Hgb 6.4 L* Pending 8.4 L Hct 20.1 L* Pending 26.2 L 05/05/19 08:15 Hgb 8.4 L Hct 26.4 L Assessment and Plan (1) Foot fracture, right The patient has been educated regarding dressing care, Physical Therapy recommendations, home exercises, restrictions, and follow up appointments. The patient has had all necessary DME prescribed. The patient has remained relatively stable during their hospital course. Status: Acute Qualifiers: Encounter type: initial encounter Fracture type: closed Qualified Code(s): S92.901A - Unspecified fracture of right foot, initial encounter for closed fracture
[2019-05-07 07:32] LABS: ALT/SGPT 7 U/l (0-40); AST/SGOT 12 U/l (0-37); Albumin 2.1 gm/dL (3.2-5.2); Albumin/Globulin Ratio 0.8 (1.0-2.3); Alkaline Phosphatase 49 U/L (39-117); Bilirubin,Direct < 0.2 mg/dL (0.0-0.3); Bilirubin,Total 0.2 mg/dL (0.0-1.0); Blood Urea Nitrogen 23 mg/dl (8-23); Calcium 7.3 mg/dl (8.6-10.4); Carbon Dioxide 23 mmol/L (22-30); Chloride 105 mmol/L (96-108); Globulin 2.6 gm/dL (2.2-3.7); Glomerular Filtration Rate 36; Glucose 169 mg/dL (70-105); Lactate Dehydrogenase 228 U/L (94-250); Magnesium 1.5 mg/dL (1.6-2.5); Phosphorous 4.3 mg/dL (2.7-4.5); Potassium 4.8 mmol/L (3.3-5.1); Sodium 138 mmol/L (133-145); Triglycerides 102 mg/dl (<150); Uric Acid 6.2 mg/dL (2.5-8.0)
[2019-05-07] MEDS: VENLAFAXINE 150 MG CAP.XL.24H PO SCH (08:11)
[2019-05-07] MEDS: metFORMIN 500 MG TABLET PO SCH ×2 (08:11→17:57)
[2019-05-07] MEDS: cefTRIAXone 1 GM VIAL IV SCH (08:11)
[2019-05-07] MEDS: ACETAMINOPHEN 500 MG TABLET PO SCH ×3 (08:11→20:58)
[2019-05-07] MEDS: DOCUSATE SODIUM 100 MG CAPSULE PO SCH ×2 (08:11→20:59)
[2019-05-07] MEDS: INSULIN LISPRO 1 UNIT/0.01 ML UNIT SQ SCH ×4 (08:11→21:10)
[2019-05-07] MEDS: ASPIRIN 325 MG ENTERIC COATED TABLET PO SCH ×2 (08:11→20:59)
[2019-05-07] MEDS ORDERED: MAGNESIUM SULFATE 2 GM/50 ML BAG IV ONE (09:04)
--- NOTE | 2019-05-07 10:20 | Internal Med Progress Note ---
Medical - PN: Subj Patient information: Note initiated : 05/07/19 at 10:16 am Service Date, if different from initiated Date: [] Patient: Kaitlin Paz 78 y/o F admitted on 05/05/19 for IM Nailing of Right Femur*Gamma Nail-Trell*. Chief Complaint: [] Interval history: Ms. Paz is a 78 year old F with history of diabetes, history of CVA, questionable memory issues presents to the emergency room today from her senior living for evaluation of left hip pain. It seems that the patient fell down yesterday which was a mechanical fall. I think she was evaluated at an urgent care center, and ankle x-ray was done which was negative and she was sent back to the senior living. Because of the pain and inability to ambulate well the patient was sent to the emergency room here. The patient denies any injury to the head, denies any injury anywhere else. She has left hip pain which is worse with activity pain is moderate at this time. Nonradiating. Improved with pain meds worse with activity. In the emergency room patient on presentation was hemodynamically stable, labs show WBC count of 9, hemoglobin 8.4, it was 8.3 at discharge from [facility] around 10 days ago. Platelets 378, INR 1.1, chemistries show a creatinine of 1.2 this was 0.912 days ago. UA is positive leuk estearse, wbc EKG shows sinus rhythm nonspecific T wave changes in the lateral leads. Chest x-ray is negative Hip x-ray shows fracture of the femur neck left Patient is being admitted to the hospital for further management, Dr. Mendes has evaluated the patient plans for surgery tomorrow The patient was at [facility] for nephrectomy, she had xanthogranulomatous pyelonephritis, left side, she underwent a laparoscopic nephrectomy, postop was complicated with hemorrhage, needing around 5 to 6 units of blood and FFP. At the time of discharge patient was hemodynamically stable and sent to a senior living. Before this surgery, the patient notes that she was fairly active, able to do all her activities of daily living, able to climb a 1-2 flights of stairs without any chest pain or significant shortness of breath. She admits to having a history of stroke, no history of heart failure no history of myocardial infarction, she does have mild renal dysfunction but her creatinine is less than 2. She is diabetic. 05/06 Pt seen examined,no acute issues, did not endorse any pain today Surgery planned today, no new issues reported, labs stable 05/07-patient dropped hemoglobin to 6.4. Urine output down to 150 for 12 hours. Creatinine from 1.1-1.4. Venous blood transfusion ordered. No obvious source of bleeding. Continue close watch. Nephrology consulted in light of declining Urine output and recent nephrectomy with uptrending creatinine. No significant postoperative pain, NSAIDs and CHAVEZ inhibitor held - Constitutional Vitals: Vital Signs Temp Pulse Resp BP Pulse Ox 98.4 F 95 H 18 109/57 91 05/07/19 08:00 05/07/19 08:00 05/07/19 08:00 05/07/19 08:00 05/07/19 09:09 Period Temp Pulse Resp BP Sys/Farah Pulse Ox Last 24 Hr 97.2 F-98.6 F 64-100 16-21 103-162/56-87 86-100 Intake and Output 05/06/19 05/07/19 05/07/19 21:59 05:59 13:59 Intake Total 2410 790 120 Output Total 150 150 125 Balance 2260 640 -5 Weight 209 lb Intake & Output: Intake & Output 05/06/19 05/07/19 05/07/19 21:59 05:59 13:59 Intake Total 2410 790 120 Output Total 150 150 125 Balance 2260 640 -5 Weight 209 lb Intake: IV 1000 Oral 510 790 120 IV - Manual Only 900 Output: Urine Catheter Amount 150 150 125 Other: Meal Dinner Breakfast Percent of Meal Consumed 100% 100% Feeding Ability Independent Urine Appearance Cloudy Clear Clear Uretheral (López) Cloudy Urine Color Dark Nevin Dark Yellow Straw Uretheral (López) Dark Yellow Urine Odor Foul Uretheral (López) Strong General appearance: morbidly obese, no acute distress Exam: Generalized pallor Fatigue Nondistended abdomen No labored breathing No significant operative site swelling or bleeding Medical - PN: Obj Da - Labs CBC & Chem 7: 05/07/19 04:35 05/07/19 04:35 Labs: Abnormal Lab Results 05/07/19 05/07/19 05/06/19 04:35 04:35 05:05 RBC 2.20 L Hgb 6.4 L* Hct 20.1 L* RDW 16.7 H Lymph % (Auto) Eos % (Auto) Lymph # (Auto) 1.4 L Eos # (Auto) PT Carbon Dioxide 21 L Creatinine 1.4 H Glucose 169 H 128 H Calcium 7.3 L 8.1 L Magnesium 1.5 L Total Protein 4.7 L 5.5 L Albumin 2.1 L 2.4 L Albumin/Globulin Ratio 0.8 L 0.8 L Urine Protein Urine Occult Blood Ur Leukocyte Esterase Urine RBC Urine WBC Ur Squamous Epith Cells Urine Bacteria 05/06/19 05/05/19 05/05/19 05:05 12:26 08:15 RBC 2.85 L Hgb 8.4 L Hct 26.2 L RDW 16.3 H Lymph % (Auto) Eos % (Auto) 12.3 H Lymph # (Auto) 1.3 L Eos # (Auto) 0.9 H PT Carbon Dioxide Creatinine 1.2 H Glucose 177 H Calcium 8.4 L Magnesium Total Protein Albumin 2.8 L Albumin/Globulin Ratio 0.9 L Urine Protein 30 A Urine Occult Blood 0.2 A Ur Leukocyte Esterase 250 A Urine RBC 8 H Urine WBC > 182 H Ur Squamous Epith Cells 12 H Urine Bacteria Many A 05/05/19 05/05/19 08:15 08:15 RBC 2.88 L Hgb 8.4 L Hct 26.4 L RDW 16.2 H Lymph % (Auto) 12.3 L Eos % (Auto) Lymph # (Auto) 1.1 L Eos # (Auto) PT 14.6 H Carbon Dioxide Creatinine Glucose Calcium Magnesium Total Protein Albumin Albumin/Globulin Ratio Urine Protein Urine Occult Blood Ur Leukocyte Esterase Urine RBC Urine WBC Ur Squamous Epith Cells Urine Bacteria Meds: Medications Acetaminophen (Tylenol) 1,000 mg PO TID [facility] Last Admin: 05/07/19 08:11 Dose: 1,000 mg Documented by: Acetaminophen (Tylenol) 650 mg PO Q6HP PRN PRN Reason: PAIN/FEVER > 101 Hydrocodone Bitart/Acetaminophen ([place] 10/325mg) 0 tab PO Q4HP PRN PRN Reason: PAIN LEVEL 3-6 Last Admin: 05/06/19 18:32 Dose: 1 tab Documented by: Albuterol Sulfate (Ventolin) 2.5 mg NEB Q2HP PRN PRN Reason: Shortness Of Breath Aspirin (Ecotrin) 325 mg PO BID [facility] Last Admin: 05/07/19 08:11 Dose: 325 mg Documented by: Bisacodyl (Dulcolax) 10 mg ME Q2-3DAYS PRN PRN Reason: Constipation Ceftriaxone Sodium (Rocephin) 1 gm IV Q24H [facility]; Protocol Last Admin: 05/07/19 08:11 Dose: 1 gm Documented by: Citalopram Hydrobromide (Celexa) 20 mg PO [facility] Last Admin: 05/06/19 21:09 Dose: 20 mg Documented by: Dextrose (Dextrose 50%) 0 ml IV UD PRN PRN Reason: Hypoglycemia Diagnostic Test (Pha) (Accu-Chek) 1 each FS [facility] Last Admin: 05/07/19 07:00 Dose: 1 each Documented by: Docusate Sodium (Colace) 100 mg PO BID [facility] Last Admin: 05/07/19 08:11 Dose: 100 mg Documented by: Glucose (Insta-Glucose) 15 gm PO PRN PRN PRN Reason: Hypoglycemia Hydromorphone HCl (Dilaudid) 0 mg IV Q2HP PRN PRN Reason: PAIN LEVEL > 6 Sodium Chloride (Sodium Chloride 0.9%) 250 mls @ 20 mls/hr IV .[id number] [facility] Stop: 05/07/19 19:59 Last Admin: 05/07/19 09:07 Dose: 20 mls/hr Documented by: Magnesium Sulfate (Magnesium Sulfate) 2 gm in 50 mls @ 25 mls/hr IV ONCE ONE Stop: 05/07/19 11:03 Insulin Human Lispro (Humalog) 0 unit SQ [facility]; Protocol Last Admin: 05/07/19 08:11 Dose: 1 unit Documented by: Levothyroxine Sodium (Synthroid) 100 mcg PO QAMAC [facility] Last Admin: 05/07/19 07:01 Dose: 100 mcg Documented by: Lisinopril (Zestril) 10 mg PO [facility] Last Admin: 05/06/19 21:09 Dose: 10 mg Documented by: Magnesium Hydroxide (Milk Of Magnesia) 30 ml PO BIDP PRN PRN Reason: Constipation Metformin HCl (Glucophage) 500 mg PO BIDCC [facility] Last Admin: 05/07/19 08:11 Dose: 500 mg Documented by: Naloxone HCl (Narcan) 0.1 mg IV Q2MIN PRN PRN Reason: Opiate Reversal Ondansetron HCl (Zofran) 4 mg IV Q4HP PRN PRN Reason: Nausea And Vomiting Oxycodone HCl (Roxicodone) 5 mg PO Q4HP PRN PRN Reason: PAIN LEVEL 3-6 Last Admin: 05/05/19 16:00 Dose: 5 mg Documented by: Methenamine Hippurate [Hiprex] 1 Gm Tab 1 dose PO BID [facility] Last Admin: 05/06/19 21:14 Dose: Not Given Documented by: Polyethylene Glycol (Miralax) 17 gm PO DAILYP PRN PRN Reason: Constipation Senna (Senokot) 2 tab PO HS [facility] Last Admin: 05/06/19 21:09 Dose: 2 tab Documented by: Sodium Biphosphate/Sodium Phosphate (Fleets Adult) 1 dose ME Q3-4DAYS PRN PRN Reason: Constipation Sodium Chloride (Saline Flush) 10 ml IV Q8 [facility] Last Admin: 05/07/19 07:00 Dose: Not Given Documented by: Temazepam (Restoril) 15 mg PO HSP PRN PRN Reason: Insomnia Throat Lozenges (Cepacol) 1 lozenge PO PRN PRN PRN Reason: Sore Throat Venlafaxine HCl (Effexor Xr) 150 mg PO DAILY [facility] Last Admin: 05/07/19 08:11 Dose: 150 mg Documented by: Medical - PN: A/P - Time Spent With Patient Total time spent is greater than 50% in coordination of care (as documented) at patient's floor/unit and/or counseling patient: 25 - 35 minutes (1) Hip fracture Status: Acute Assessment and plan: * Right hip fracture-postoperative day 1. Managed per orthopedics. Patient is managed by hospitalist service * Acute blood loss anemia-2 units blood transfusion. Recheck hemoglobin posttr ansfusion. * TRESA with elevated creatinine/urine output less than 15 cc an hour for the last 12 hours. Hold CHAVEZ inhibitor/NSAID, nephrology consulted * Complicated UTI continue Rocephin. Await cultures * Anxiety disorder continue Celexa * History of hypertension -on CHAVEZ inhibitor. Hold in light of TRESA * DM type II on sliding scale insulin * Hypothyroidism continue home medications * DNR Plan * 2 units PRBC * DC NSAIDs * Hold CHAVEZ inhibitor * Nephrology consult * Abdominal ultrasound Current Visit: Yes Medical - PN: Qual - VTE Deep Vein Thrombosis/Pulmonary Embolism Present on Admission: No
--- NOTE | 2019-05-07 12:11 | Nephrology Consult Note ---
History of Present Illness - Reason for Consult Patient information: Note initiated : 05/07/19 at 12:09 pm Service Date, if different from initiated Date: [] Patient: Kaitlin Paz 78 y/o F admitted on 05/05/19 for IM Nailing of Right Femur*Gamma Nail-Trell*. 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 She underwent a laparoscopic nephrectomy, postop was complicated with hemorrhage, needing around 6 units of blood and FFP. At the time of discharge patient was hemodynamically stable and sent to a shelter. HgB in the low 8's. At the rehab/nursing facility, the patient sustained a fall and an fractured right hip. She underwent Gamma nail fixation of a closed right femure fx without immediate complications. This am the patient was noted to have a slight increase in her SCr (1.0 => 1.4), oliguria and low BP and a 2 gm drop in her HgB. Ketorolac and lisinopril have been stopped. Transfusion for transient hypotension and HGB has been ordered. HgB 8.4 => 6.8=> 8.2 gm/dl. SCr 1.0/1.2=> 1.4 mg/dl Renal U/S: FINDINGS: Liver is normal in size and echotexture without focal lesion. The gallbladder is surgically absent. Common bile duct is normal at 7 mm. Left kidney is surgically absent. Right kidney is normal - 12 x 6 cm. The spleen, aorta, IVC and pancreas are unremarkable. Small accessory spleen is appreciated adjacent to the splenic IMPRESSION: Negative. Note: Ultrasound is relatively insensitive in detecting retroperitoneal hemorrhage and hemorrhagic source. The imaging test choice is abdomen and pelvic CT for this clinical problem. Review of Systems ROS unobtainable: due to mental status, other Constitutional: as per HPI Nose, mouth and throat: as per HPI Cardiovascular: as per HPI Respiratory: as per HPI Gastrointestinal: as per HPI Musculoskeletal: abnormal gait Musculoskeletal: right: hip stiffness (Acute fx and gamma nail repair) Integumentary: as per HPI Neurological: confusion, memory loss Psychiatric: abnormal sleep pattern, depression, difficulty concentrating Endocrine: as per HPI Hematologic/Lymphatic: other Allergic/Immunologic: as per HPI Past History Past medical history: Medical history: Xanthogranulomatous pyelonephritis, status post left nephrectomy with pRBC transfusions Diabetes Chronic lower extremity edema History of CVA Depression History of recurrent UTIs Hypothyroidism Surgical history: Status post left nephrectomy Family history: reviewed Social history: Presently lives in a shelter but previously was residing with her son-in-law and daughter Non-smoker / no EtOH No recreational drug use Medications and Allergies Home Medications Medication Instructions Recorded Confirmed Type Aspirin [Lite Coat Aspirin] 81 mg PO DAILY 05/05/19 05/05/19 History Benazepril [Lotensin] 10 mg PO HS 05/05/19 05/05/19 History Ciprofloxacin [Cipro] 500 mg PO BID 05/05/19 05/05/19 History Citalopram [Celexa] 20 mg PO HS 05/05/19 05/05/19 History Docusate Sodium 250 mg PO DAILYP PRN 05/05/19 05/05/19 History Levothyroxine [Synthroid] 100 mcg PO DAILY 05/05/19 05/05/19 History Methenamine Hippurate [Hiprex] 1 gm PO BID 05/05/19 05/05/19 History Venlafaxine [Effexor Xr] 150 mg PO DAILY 05/05/19 05/05/19 History metFORMIN HCL [Metformin HCl] 500 mg PO BID 05/05/19 05/05/19 History Allergies Allergy/AdvReac Type Severity Reaction Status Date / Time shellfish derived Allergy Unknown Unknown Verified 05/05/19 07:12 Exam - Vital Signs Vital signs: Temp Pulse Resp BP Pulse Ox 98.1 F 86 20 109/57 97 05/07/19 11:59 05/07/19 11:59 05/07/19 11:59 05/07/19 11:59 05/07/19 11:59 - General Appearance General appearance: obese, chronically ill, frail EENT: ATNC, PERRL, mucous membranes dry Neck: no JVD, no thyromegaly, no carotid bruit Respiratory: kyphosis Cardiology: no rub, no gallops, edema, regular rate Gastrointestinal: normoactive bowel sounds, no tenderness Neurologic: no focal deficit, confused, disoriented Musculoskeletal: no erythema, no cyanosis, no clubbing Results - Lab Results 05/07/19 16:31 05/07/19 04:35 Most recent lab results Calcium 7.3 mg/dl (8.6-10.4) L 05/07/19 04:35 Phosphorus 4.3 mg/dL (2.7-4.5) 05/07/19 04:35 Magnesium 1.5 mg/dL (1.6-2.5) L 05/07/19 04:35 - Image Kidney/bladder ultrasound: report reviewed Assessment and Plan (1) Acute renal failure superimposed on stage 3 chronic kidney disease Status: Acute Priority: High Qualifiers: Acute renal failure type: with other specified pathological lesion Qualif ied Code(s): N17.8 - Other acute kidney failure; N18.3 - Chronic kidney disease, stage 3 (moderate) - Narrative A/P Narrative: This 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 Subsequently she developed ARF in past 34-48 hours in the setting of a trip to [place], acute blood loss anemia, transient hypotension, ACEi and possible NSAIDs. Suspect the insult is PRE-Renal Azotemia and volume correction (with blood and crystalloid) is in order Check fractional excretion of Na Urine eos but time course not right for acute/drug induced Interstitial Nephritis ATN is a possibility if renal hypoferfusion was prolonged. For now, agree with management and additional testing will be ordered. If further retroperitoneal bleeding is a concern, it will be apparent by ongoing pRBC requirements, in which a non-contrast CT would be helpful Thank you for this consult and will follow with you.
--- NOTE | 2019-05-07 12:49 | Ultrasound Report ---
CLINICAL INFORMATION: TRESA, blood loss anemia- assess retroperitoneal ble COMPARISON: None. FINDINGS: Liver is normal in size and echotexture without focal lesion. The gallbladder is surgically absent. Common bile duct is normal at 7 mm. Left kidney is surgically absent. Right kidney is normal - 12 x 6 cm. The spleen, aorta, IVC and pancreas are unremarkable. Small accessory spleen is appreciated adjacent to the splenic IMPRESSION: Negative. Note: Ultrasound is relatively insensitive in detecting retroperitoneal hemorrhage and hemorrhagic source. The imaging test choice is abdomen and pelvic CT for this clinical problem. Interpreted and Authenticated by: Arsen Martines 05/07/19
[2019-05-07] MEDS: CITALOPRAM 20 MG TABLET PO SCH (20:59)
[2019-05-07] MEDS: SENNOSIDES 1 TABLET PO SCH (20:59)
[2019-05-08 00:29] LABS: Appearance,Urine HAZY; Bacteria,Urine 0 /hpf (0); Bilirubin,Urine NEG (NEG); Color,Urine YELLOW; Culture Indicated,Urine NO; Glucose,Urine (UA) NEGATIVE (NEG); Ketones,Urine NEG (NEG); Leukocyte Esterase,Urine 25 /uL (NEG); Nitrate,Urine NEG (NEG); Protein,Urine NEG (NEG); Specific Gravity,Urine 1.006 (1.000-1.035); Urine Amorphous Crystals MOD /hpf (0); Urine Blood >=1.0 mg/dL (<0.03); Urine RBC 1 /hpf (0-1); Urine Squamous Epithelial Cell 1 /hpf (0-4); Urine WBC 2 /hpf (0-4); Urobilinogen,Urine NEG (NEG)
[2019-05-08 00:42] LABS: Sodium, Urine Random 28 mmol/L
[2019-05-08 05:52] LABS: Basophils # (Auto) 0.1 K/mcL (0.0-0.3); Basophils % (Auto) 0.9 % (0.0-2.0); Eosinophils # (Auto) 0.8 K/mcL (0.0-0.7); Eosinophils % (Auto) 11.6 % (0.0-7.0); Lymphocytes # (Auto) 1.5 K/mcL (1.5-4.8); Lymphocytes % (Auto) 21.6 % (15.5-49.0); Mean Cell Volume 93.4 fL (80.0-100.0); Mean Corpuscular HGB Conc 32.1 g/dL (31.0-36.0); Mean Platelet Volume 7.6 fL (7.4-10.4); Monocytes # (Auto) 0.5 K/mcL (0.1-0.9); Monocytes % (Auto) 6.9 % (1.0-12.0); Platelet Count 254 K/mcL (140-440); RBC 2.67 M/mcL (4.00-5.20); Red Cell Distribution Width 16.1 % (11.5-14.5)
[2019-05-08 06:51] LABS: ALT/SGPT 5 U/l (0-40); AST/SGOT 13 U/l (0-37); Albumin 2.5 gm/dL (3.2-5.2); Alkaline Phosphatase 56 U/L (39-117); Bilirubin,Direct < 0.2 mg/dL (0.0-0.3); Bilirubin,Total 0.3 mg/dL (0.0-1.0); Blood Urea Nitrogen 25 mg/dl (8-23); Calcium 7.8 mg/dl (8.6-10.4); Carbon Dioxide 27 mmol/L (22-30); Chloride 107 mmol/L (96-108); Globulin 2.5 gm/dL (2.2-3.7); Glomerular Filtration Rate 36; Glucose 108 mg/dL (70-105); Lactate Dehydrogenase 213 U/L (94-250); Magnesium 2.1 mg/dL (1.6-2.5); Phosphorous 2.8 mg/dL (2.7-4.5); Potassium 4.6 mmol/L (3.3-5.1); Sodium 144 mmol/L (133-145); Triglycerides 135 mg/dl (<150)
[2019-05-08] MEDS: LEVOTHYROXINE 100 MCG TABLET PO SCH (07:10)
[2019-05-08] MEDS: INSULIN LISPRO 1 UNIT/0.01 ML UNIT SQ SCH ×4 (07:12→21:44)
[2019-05-08] MEDS: 0.9 % SODIUM CHLORIDE 10 ML SYRINGE IV SCH ×3 (07:12→21:45)
[2019-05-08] MEDS: metFORMIN 500 MG TABLET PO SCH ×2 (08:13→16:53)
[2019-05-08] MEDS: ACETAMINOPHEN 500 MG TABLET PO SCH ×3 (08:52→21:44)
[2019-05-08] MEDS: ASPIRIN 325 MG ENTERIC COATED TABLET PO SCH ×2 (08:53→21:44)
[2019-05-08] MEDS: DOCUSATE SODIUM 100 MG CAPSULE PO SCH ×2 (08:53→21:44)
[2019-05-08] MEDS: VENLAFAXINE 150 MG CAP.XL.24H PO SCH (08:53)
--- NOTE | 2019-05-08 14:49 | Internal Med Progress Note ---
Medical - PN: Subj Patient information: Note initiated : 05/08/19 at 2:29 pm Service Date, if different from initiated Date: [] Patient: Kaitlin Paz 78 y/o F admitted on 05/05/19 for IM Nailing of Right Femur*Gamma Nail-[place]*. Chief Complaint: [] Interval history: Ms. Paz is a 78 year old F with history of diabetes, history of CVA, questionable memory issues presents to the emergency room today from her [facility] for evaluation of left hip pain. It seems that the patient fell down yesterday which was a mechanical fall. I think she was evaluated at an urgent care center, and ankle x-ray was done which was negative and she was sent back to the [facility]. Because of the pain and inability to ambulate well the patient was sent to the emergency room here. The patient denies any injury to the head, denies any injury anywhere else. She has left hip pain which is worse with activity pain is moderate at this time. Nonradiating. Improved with pain meds worse with activity. In the emergency room patient on presentation was hemodynamically stable, labs show WBC count of 9, hemoglobin 8.4, it was 8.3 at discharge from [facility] around 10 days ago. Platelets 378, INR 1.1, chemistries show a creatinine of 1.2 this was 0.912 days ago. UA is positive leuk [place], wbc EKG shows sinus rhythm nonspecific T wave changes in the lateral leads. Chest x-ray is negative Hip x-ray shows fracture of the femur neck left Patient is being admitted to the hospital for further management, Dr. Mendes has evaluated the patient plans for surgery tomorrow The patient was at [facility] for nephrectomy, she had xanthogranulomatous pyelonephritis, left side, she underwent a laparoscopic nephrectomy, postop was complicated with hemorrhage, needing around 5 to 6 units of blood and FFP. At the time of discharge patient was hemodynamically stable and sent to a [facility]. Before this surgery, the patient notes that she was fairly active, able to do all her activities of daily living, able to climb a 1-2 flights of stairs without any chest pain or significant shortness of breath. She admits to having a history of stroke, no history of heart failure no history of myocardial infarction, she does have mild renal dysfunction but her creatinine is less than 2. She is diabetic. 05/06 Pt seen examined,no acute issues, did not endorse any pain today Surgery planned today, no new issues reported, labs stable 05/07-patient dropped hemoglobin to 6.4. Urine output down to 150 for 12 hours. Creatinine from 1.1-1.4. Venous blood transfusion ordered. No obvious source of bleeding. Continue close watch. Nephrology consulted in light of declining Urine output and recent nephrectomy with uptrending creatinine. No significant postoperative pain, NSAIDs and CHAVEZ inhibitor held 05/08-patient doing well. Hemoglobin at 8. Status post 2 units transfusion. Ongoing physical therapy. No significant postop pain. Doing well. Possible discharge in 24 hours. No family at bedside. - Constitutional Vitals: Vital Signs Temp Pulse Resp BP Pulse Ox 97.8 F 77 16 112/61 96 05/08/19 12:00 05/08/19 12:00 05/08/19 12:00 05/08/19 12:00 05/08/19 12:00 Period Temp Pulse Resp BP Sys/Farah Pulse Ox Last 24 Hr 97.4 F-98.2 F 77-93 16-20 87-125/46-65 88-98 Intake and Output 05/08/19 05/08/19 05/08/19 05:59 13:59 21:59 Intake Total 50 240 Output Total 103 1 Balance -53 239 Intake & Output: Intake & Output 05/08/19 05/08/19 05/08/19 05:59 13:59 21:59 Intake Total 50 240 Output Total 103 1 Balance -53 239 Intake: Nourishment/Supplement quantity 240 (ml) Oral 50 Output: Urine Catheter Amount 100 # of times incontinent of urine 3 1 Other: Meal Breakfast Percent of Meal Consumed 100% Feeding Ability Independent Nourishment/Supplement name Ensure General appearance: no acute distress Exam: Alert oriented Nonlabored breathing improved pallor No anxiety No bleeding noted postoperative site No lymphedema Medical - PN: Obj Da - Labs CBC & Chem 7: 05/08/19 04:25 05/08/19 04:25 Labs: Abnormal Lab Results 05/08/19 05/08/19 05/07/19 04:25 04:25 23:41 RBC 2.67 L Hgb 8.0 L Hct 25.0 L RDW 16.1 H Eos % (Auto) 11.6 H Lymph # (Auto) Eos # (Auto) 0.8 H Carbon Dioxide BUN 25 H Creatinine 1.4 H Glucose 108 H Calcium 7.8 L Magnesium Total Protein 5.0 L Albumin 2.5 L Albumin/Globulin Ratio Urine Occult Blood >=1.0 A Ur Leukocyte Esterase 25 A Amorphous Crystals Mod A 05/07/19 05/07/19 05/07/19 16:31 04:35 04:35 RBC 2.20 L Hgb 8.2 L 6.4 L* Hct 20.1 L* RDW 16.7 H Eos % (Auto) Lymph # (Auto) 1.4 L Eos # (Auto) Carbon Dioxide BUN Creatinine 1.4 H Glucose 169 H Calcium 7.3 L Magnesium 1.5 L Total Protein 4.7 L Albumin 2.1 L Albumin/Globulin Ratio 0.8 L Urine Occult Blood Ur Leukocyte Esterase Amorphous Crystals 05/06/19 05/06/19 05:05 05:05 RBC 2.85 L Hgb 8.4 L Hct 26.2 L RDW 16.3 H Eos % (Auto) 12.3 H Lymph # (Auto) 1.3 L Eos # (Auto) 0.9 H Carbon Dioxide 21 L BUN Creatinine Glucose 128 H Calcium 8.1 L Magnesium Total Protein 5.5 L Albumin 2.4 L Albumin/Globulin Ratio 0.8 L Urine Occult Blood Ur Leukocyte Esterase Amorphous Crystals Meds: Medications Acetaminophen (Tylenol) 1,000 mg PO TID [facility] Last Admin: 05/08/19 08:52 Dose: 1,000 mg Documented by: Acetaminophen (Tylenol) 650 mg PO Q6HP PRN PRN Reason: PAIN/FEVER > 101 Hydrocodone Bitart/Acetaminophen ([place] 10/325mg) 0 tab PO Q4HP PRN PRN Reason: PAIN LEVEL 3-6 Last Admin: 05/06/19 18:32 Dose: 1 tab Documented by: Albuterol Sulfate (Ventolin) 2.5 mg NEB Q2HP PRN PRN Reason: Shortness Of Breath Aspirin (Ecotrin) 325 mg PO BID [facility] Last Admin: 05/08/19 08:53 Dose: 325 mg Documented by: Bisacodyl (Dulcolax) 10 mg NE Q2-3DAYS PRN PRN Reason: Constipation Citalopram Hydrobromide (Celexa) 20 mg PO [facility] Last Admin: 05/07/19 20:59 Dose: 20 mg Documented by: Dextrose (Dextrose 50%) 0 ml IV UD PRN PRN Reason: Hypoglycemia Diagnostic Test (Pha) (Accu-Chek) 1 each FS [facility] Last Admin: 05/08/19 11:29 Dose: 1 each Documented by: Docusate Sodium (Colace) 100 mg PO BID [facility] Last Admin: 05/08/19 08:53 Dose: 100 mg Documented by: Glucose (Insta-Glucose) 15 gm PO PRN PRN PRN Reason: Hypoglycemia Hydromorphone HCl (Dilaudid) 0 mg IV Q2HP PRN PRN Reason: PAIN LEVEL > 6 Insulin Human Lispro (Humalog) 0 unit SQ [facility]; Protocol Last Admin: 05/08/19 11:33 Dose: 1 unit Documented by: Levothyroxine [facility]) [facility] Last Admin: 05/08/19 07:10 Dose: 100 mcg Documented by: Magnesium Hydroxide (Milk Of Magnesia) 30 ml PO BIDP PRN PRN Reason: Constipation Last Admin: 05/07/19 14:25 Dose: 30 ml Documented by: [facility]) [facility] Last Admin: 05/08/19 08:13 Dose: 500 mg Documented by: Naloxone HCl (Narcan) 0.1 mg IV Q2MIN PRN PRN Reason: Opiate Reversal Ondansetron HCl (Zofran) 4 mg IV Q4HP PRN PRN Reason: Nausea And Vomiting Oxycodone HCl (Roxicodone) 5 mg PO Q4HP PRN PRN Reason: PAIN LEVEL 3-6 Last Admin: 05/05/19 16:00 Dose: 5 mg Documented by: Methenamine Hippurate [Hiprex] 1 Gm Tab 1 dose PO BID [facility] Last Admin: 05/08/19 10:31 Dose: 1 dose Documented by: Polyethylene Glycol (Miralax) 17 gm PO DAILYP PRN PRN Reason: Constipation Senna (Senokot) 2 tab PO [facility] Last Admin: 05/07/19 20:59 Dose: 2 tab Documented by: Sodium Biphosphate/Sodium Phosphate (Fleets Adult) 1 dose NE Q3-4DAYS PRN PRN Reason: Constipation Sodium Chloride (Saline Flush) 10 ml IV Q8 [facility] Last Admin: 05/08/19 07:12 Dose: 10 ml Documented by: Temazepam (Restoril) 15 mg PO HSP PRN PRN Reason: Insomnia Last Admin: 05/08/19 01:19 Dose: 15 mg Documented by: Throat Lozenges (Cepacol) 1 lozenge PO PRN PRN PRN Reason: Sore Throat Venlafaxine HCl (Effexor Xr) 150 mg PO DAILY [facility] Last Admin: 05/08/19 08:53 Dose: 150 mg Documented by: Medical - PN: A/P - Time Spent With Patient Total time spent is greater than 50% in coordination of care (as documented) at patient's floor/unit and/or counseling patient: 15 - 24 minutes (1) Hip fracture Status: Acute Assessment and plan: * Right hip fracture-postoperative day 2. Managed per orthopedics. Continue aggressive postoperative PT OT Patient is managed by hospitalist service * Acute blood loss anemia-status post 2 units blood transfusion. Hemoglobin up from 6.4-8. No further drop in hemoglobin. * TRESA with elevated creatinine/urine output less than 15 cc an hour for the last 12 hours. CHAVEZ inhibitor/NSAID held, nephrology on board. Creatinine at 1.4 * Complicated UTI -DC antibiotics , culture lactobacillus * Anxiety disorder stable on Celexa * History of hypertension -held CHAVEZ inhibitor in light of TRESA * DM type II on sliding scale insulin * Hypothyroidism continue home medications * DNR Plan * Monitor hemoglobin * Await further nephrology recommendations * Continue with postop PT OT * Nutrition support * Possible discharge in 24 hours if renal function improves and no evidence of further bleed Current Visit: Yes Medical - PN: Qual - VTE Deep Vein Thrombosis/Pulmonary Embolism Present on Admission: No
[2019-05-08] MEDS: cefTRIAXone 1 GM VIAL IV SCH (15:23)
--- NOTE | 2019-05-08 16:03 | Discharge Summary ---
Medical - DS: Prov Patient information: Note initiated : 05/08/19 at 4:01 pm Service Date, if different from initiated Date: [] Patient: Kaitlin Paz 78 y/o F admitted on 05/05/19 for IM Nailing of Right Femur*Gamma Nail-[place]*. Chief Complaint: [] Date of admission: 05/05/19 11:47 Discharge date: 05/09/19 Primary care physician: Arsen Horner Consults: 05/05/19 08:53 Consult to Physician [CONS] Stat Comment: Consulting Provider: Lex Warren Reason For Exam: Physician to Consult Consult to Physician [CONS] Stat Comment: Consulting Provider: Андрей Evans Reason For Exam: Physician to Consult 05/07/19 10:23 Consult to Physician [CONS] Routine Comment: Tresa Consulting Provider: Chaparro Conti Reason For Exam: Physician to Consult Medical - DS: Meds - Discharge Medications Prescriptions: Benazepril [Lotensin] 10 mg PO HS #1 tab Active and Home Medications: Home Medications Aspirin [Lite Coat Aspirin] 81 mg PO DAILY 05/05/19 [History Confirmed 05/05/19 Last Taken 05/04/19] Citalopram [Celexa] 20 mg PO HS 05/05/19 [History Confirmed 05/05/19 Last Taken 05/04/19] Docusate Sodium 250 mg PO DAILYP PRN 05/05/19 [History Confirmed 05/05/19 Last Taken 04/24/19] Levothyroxine [Synthroid] 100 mcg PO DAILY 05/05/19 [History Confirmed 05/05/19 Last Taken 05/04/19] Methenamine Hippurate [Hiprex] 1 gm PO BID 05/05/19 [History Confirmed 05/05/19 Last Taken 05/04/19] Venlafaxine [Effexor Xr] 150 mg PO DAILY 05/05/19 [History Confirmed 05/05/19 Last Taken 05/04/19] metFORMIN HCL [Metformin HCl] 500 mg PO BID 05/05/19 [History Confirmed 05/05/19 Last Taken 05/04/19] Benazepril [Lotensin] 10 mg PO HS #1 tablet 05/08/19 [Rx Last Taken Unknown] Medical - DS: Hosp Hospital course: Discharge diagnosis * Right hip fracture-postoperative day 3. Recovering well. Undergoing physical therapy. Follow-up with orthopedics on discharge Patient is managed by hospitalist service * Acute blood loss anemia-status post 2 units blood transfusion. Hemoglobin stabilized around 8. * TRESA with elevated creatinine/urine output less than 15 cc an hour for the last 12 hours. CHAVEZ inhibitor/NSAID held, nephrology on board. Creatinine at stable around 1.4 . Recommend follow-up with nephrology as outpatient. Restart CHAVEZ inhibitor on May 11 * Complicated UTI -off antibiotics. Clinically resolved. * Anxiety disorder stable on Celexa * History of hypertension -restart CHAVEZ inhibitor on May 11. * DM type II on sliding scale insulin * Hypothyroidism continue home medications Brief hospital course Ms. Paz is a 78 year old F with history of diabetes, history of CVA, questionable memory issues presents to the emergency room today from her custodial for evaluation of left hip pain. It seems that the patient fell down yesterday which was a mechanical fall. I think she was evaluated at an urgent care center, and ankle x-ray was done which was negative and she was sent back to the custodial. Because of the pain and inability to ambulate well the patient was sent to the emergency room here. The patient denies any injury to the head, denies any injury anywhere else. She has left hip pain which is worse with activity pain is moderate at this time. Nonradiating. Improved with pain meds worse with activity. In the emergency room patient on presentation was hemodynamically stable, labs show WBC count of 9, hemoglobin 8.4, it was 8.3 at discharge from [facility] around 10 days ago. Platelets 378, INR 1.1, chemistries show a creatinine of 1.2 this was 0.912 days ago. UA is positive leuk [place], wbc EKG shows sinus rhythm nonspecific T wave changes in the lateral leads. Chest x-ray is negative Hip x-ray shows fracture of the femur neck left Patient is being admitted to the hospital for further management, Dr. Mendes has evaluated the patient plans for surgery tomorrow The patient was at [facility] for nephrectomy, she had xanthogranulomatous pyelonephritis, left side, she underwent a laparoscopic nephrectomy, postop was complicated with hemorrhage, needing around 5 to 6 units of blood and FFP. At the time of discharge patient was hemodynamically stable and sent to a custodial. Before this surgery, the patient notes that she was fairly active, able to do all her activities of daily living, able to climb a 1-2 flights of stairs without any chest pain or significant shortness of breath. She admits to having a history of stroke, no history of heart failure no history of myocardial i nfarction, she does have mild renal dysfunction but her creatinine is less than 2. She is diabetic. 05/06 Pt seen examined,no acute issues, did not endorse any pain today Surgery planned today, no new issues reported, labs stable 05/07-patient dropped hemoglobin to 6.4. Urine output down to 150 for 12 hours. Creatinine from 1.1-1.4. Venous blood transfusion ordered. No obvious source of bleeding. Continue close watch. Nephrology consulted in light of declining Urine output and recent nephrectomy with uptrending creatinine. No significant postoperative pain, NSAIDs and CHAVEZ inhibitor held 05/08-patient doing well. Hemoglobin at 8. Status post 2 units transfusion. Ongoing physical therapy. No significant postop pain. Doing well. Possible discharge in 24 hours. No family at bedside. 05/09-[facility] Continue follow-up with PCP/orthopedics for post operative follow-ups. Avoid NSAIDs. Follow-up with nephrology in 1 to 2-week for chronic kidney disease management. Continue aggressive PT OT/nutrition support. Detailed discharge instructions as below Discharge diagnosis: . - Time Spent with Patient Total time spent providing and/or coordinating discharge services: Greater than 30 minutes Medical - DS: Exam - Constitutional Vitals: Vital Signs Temp Pulse Resp BP Pulse Ox 05/08/19 12:00 97.8 F 77 16 112/61 96 05/08/19 08:00 96 05/08/19 07:13 97.4 F 79 16 115/65 96 05/08/19 05:39 94 05/08/19 03:30 88 L 05/08/19 03:29 98.2 F 86 16 106/51 92 05/08/19 02:15 94 05/07/19 23:33 98.1 F 91 H 16 125/62 98 05/07/19 21:29 92 05/07/19 21:28 88 L 05/07/19 19:32 98.1 F 93 H 16 87/46 93 05/07/19 17:59 90 Intake and Output 05/08/19 05/08/19 05/08/19 05:59 13:59 21:59 Intake Total 50 240 Output Total 103 1 Balance -53 239 Intake: Nourishment/Supplement quantity 240 (ml) Oral 50 Output: Urine Catheter Amount 100 # of times incontinent of urine 3 1 Other: Meal Breakfast Percent of Meal Consumed 100% Feeding Ability Independent Nourishment/Supplement name Ensure Medical - DS: Data Labs on day of discharge: Labs from last 24 hours 05/08/19 05/08/19 05/07/19 04:25 04:25 23:41 WBC 7.0 RBC 2.67 L Hgb 8.0 L Hct 25.0 L MCV 93.4 MCH 30.0 MCHC 32.1 RDW 16.1 H Plt Count 254 MPV 7.6 Gran % 59.0 Lymph % (Auto) 21.6 [place] % (Auto) 6.9 Eos % (Auto) 11.6 H Baso % (Auto) 0.9 Gran # 4.1 Lymph # (Auto) 1.5 Carter # (Auto) 0.5 Eos # (Auto) 0.8 H Baso # (Auto) 0.1 Sodium 144 Potassium 4.6 Chloride 107 Carbon Dioxide 27 Anion Gap 10.0 BUN 25 H Creatinine 1.4 H GFR Calculation 36 Glucose 108 H Uric Acid 7.0 Calcium 7.8 L Phosphorus 2.8 Magnesium 2.1 Total Bilirubin 0.3 Direct Bilirubin < 0.2 GGT 16 AST 13 ALT 5 Alkaline Phosphatase 56 Lactate Dehydrogenase 213 Total Protein 5.0 L Albumin 2.5 L Globulin 2.5 Albumin/Globulin Ratio 1.0 Triglycerides 135 Urine Color Yellow Urine Appearance Hazy Urine pH 5.0 Ur Specific [place] 1.006 Urine Protein Neg Urine Glucose (UA) Negative Urine Ketones Neg Urine Occult Blood >=1.0 A Urine Nitrate Neg Urine Bilirubin Neg Urine Urobilinogen Neg Ur Leukocyte Esterase 25 A Urine RBC 1 Urine WBC 2 Ur Squamous Epith Cells 1 Amorphous Crystals Mod A Urine Bacteria 0 Ur Culture Indicated? No Urine Eosinophils Ur Random Creatinine Ur Random Sodium 05/07/19 05/07/19 05/07/19 23:41 23:41 16:31 WBC RBC Hgb 8.2 L Hct MCV MCH MCHC RDW Plt Count MPV Gran % Lymph % (Auto) [place] % (Auto) Eos % (Auto) Baso % (Auto) Gran # Lymph # (Auto) Carter # (Auto) Eos # (Auto) Baso # (Auto) Sodium Potassium Chloride Carbon Dioxide Anion Gap BUN Creatinine GFR Calculation Glucose Uric Acid Calcium Phosphorus Magnesium Total Bilirubin Direct Bilirubin GGT AST ALT Alkaline Phosphatase Lactate Dehydrogenase Total Protein Albumin Globulin Albumin/Globulin Ratio Triglycerides Urine Color Urine Appearance Urine pH Ur Specific [place] Urine Protein Urine Glucose (UA) Urine Ketones Urine Occult Blood Urine Nitrate Urine Bilirubin Urine Urobilinogen Ur Leukocyte Esterase Urine RBC Urine WBC Ur Squamous Epith Cells Amorphous Crystals Urine Bacteria Ur Culture Indicated? Urine Eosinophils TNP Ur Random Creatinine 26.5 Ur Random Sodium 28 Medical - DS: A/P - Patient/Caregiver Discharge Instructions Activity: increase activity as tolerated Diet: Renal/Consistent Carbs Additional Instructions: Follow-up PCP in 5 days Follow-up with nephrology in 1 to 2 weeks Hold CHAVEZ inhibitor until May 11 F/u orthopedics as scheduled by orthopedics along with post op care. Continue post hip DVT prophylaxis as per orthopedics I recommend physician to check CBC BMP UA as a posthospital follow-up in 1 week. Continue aggressive bowel regimen to prevent constipation Continue fall precautions Continue aggressive PT OT evaluation and treatment at . ST eval and treatment if indicated All meals on chair sitting upright at 90 degrees to prevent aspiration Return to ER if worsening fever chills shortness of breath, diarrhea, bleeding Continue diabetic/renal diet and activity as advised Discussed importance of medication adherence Please review medication list with patient prior to discharge Please schedule follow-up with PCP/Providers prior to discharge and provide printouts Discharge Ortho Instructions: Weight bearing as tolerated. You have the Aquacel Ag dressing, leave in place for 7 days then remove. If dressing becomes soiled (turns black), remove and use gauze 4x4 dressing and silvasorb ointment and change daily. You may shower with dressing on, pat dry after shower. You may start showering on post op day #2. To avoid constipation while taking any narcotic pain medication, take an over the counter stool softener/laxative. Use ice packs as directed, on for 20 minutes at a time throughout the day. This and elevation will help with pain and swelling. Call your physician for fevers above 100.5 or pain not controlled by medication. Prescriptions: Benazepril [Lotensin] 10 mg PO HS #1 tab - Problem Maintenance (1) Hip fracture Status: Acute Qualifiers: Encounter type: initial encounter Fracture type: closed Laterality: right Qualified Code(s): S72.001A - Fracture of unspecified part of neck of right femur, initial encounter for closed fracture - Follow up Plan Follow up with: Lex Warren MD [Physician] - (Please call and schedule to be seen 10-14 days post surgery.) Chaparro Conti MD [Physician] - (Please call and schedule to be seen in 1-2 weeks.) Arsen Horner DO [Primary Care Provider] - (Please call and schedule hospital follow up to be seen in 5 days.) Disposition: [facility] [place] Prognosis: Fair Rehab Potential: Fair Overall status at discharge: patient is progressing back to baseline Medical - DS: Qual - VTE Deep Vein Thrombosis/Pulmonary Embolism Present on Admission: No
--- NOTE | 2019-05-08 19:21 | Nephrology Progress Note ---
Subjective Patient information: Note initiated : 05/08/19 at 7:19 pm Service Date, if different from initiated Date: [] Patient: Kaitlin Paz 78 y/o F admitted on 05/05/19 for IM Nailing of Right Femur*Gamma Nail-[place]*. Chief Complaint: [] Principal diagnosis: fx hip Interval history: Stable O/N No evidence of ongoing blood loss Pertinent ROS: Less anxious Able to get OOB with assistance Objective - Vital Signs Vital signs: Vital Signs Temp Pulse Resp BP BP Pulse Ox 05/08/19 18:42 98.7 F 99 H 22 140/65 91 05/08/19 17:52 95 05/08/19 16:00 98.1 F 82 16 120/61 94 05/08/19 12:00 97.8 F 77 16 112/61 96 05/08/19 08:00 96 05/08/19 07:13 97.4 F 79 16 115/65 96 05/08/19 05:39 94 05/08/19 03:30 88 L 05/08/19 03:29 98.2 F 86 16 106/51 92 05/08/19 02:15 94 05/07/19 23:33 98.1 F 91 H 16 125/62 98 05/07/19 21:29 92 05/07/19 21:28 88 L 05/07/19 19:32 98.1 F 93 H 16 87/46 93 Intake and Output 05/08/19 05/08/19 05/08/19 05:59 13:59 21:59 Intake Total 50 240 800 Output Total 103 1 Balance -53 239 800 Intake: Nourishment/Supplement quantity 240 (ml) Oral 50 800 Output: Urine Catheter Amount 100 # of times incontinent of urine 3 1 Other: Meal Breakfast Percent of Meal Consumed 100% Feeding Ability Independent Nourishment/Supplement name Ensure Intake & Output: Intake & Output 05/08/19 05/08/19 05/08/19 05:59 13:59 21:59 Intake Total 50 240 800 Output Total 103 1 Balance -53 239 800 Intake: Nourishment/Supplement quantity 240 (ml) Oral 50 800 Output: Urine Catheter Amount 100 # of times incontinent of urine 3 1 Other: Meal Breakfast Percent of Meal Consumed 100% Feeding Ability Independent Nourishment/Supplement name Ensure - General Appearance General appearance: appears started age, chronically ill EENT: ATNC, PERRL, mucous membranes moist Neck: no JVD, no thyromegaly Respiratory: clear Cardiology: no murmurs, no rub, no gallops, regular rate, regular rhythm Gastrointestinal: normoactive bowel sounds, no tenderness, no guarding, no organomegaly Integumentary: no rash Neurologic: no focal deficit, no asterixis, alert and oriented x3, CN 3-12 intact Musculoskeletal: no deformities, no erythema, no cyanosis, no clubbing Psychiatric: mood/affect appropriate, cooperative - Lab 05/08/19 04:25 05/08/19 04:25 Most recent lab results Calcium 7.8 mg/dl (8.6-10.4) L 05/08/19 04:25 Phosphorus 2.8 mg/dL (2.7-4.5) 05/08/19 04:25 Magnesium 2.1 mg/dL (1.6-2.5) 05/08/19 04:25 - Imaging Kidney/bladder ultrasound: report reviewed Assessment and Plan (1) Acute renal failure superimposed on stage 3 chronic kidney disease GFR stable. Will take a few months to see where here renal function settles out. Suspect acute pre-renal azotemia superimposed on CKD 3 (HTN nephrosclerosis) and reduce renal mass was at play here Agree with discharge Status: Acute Priority: High Qualifiers: Acute renal failure type: with other specified pathological lesion Qualified Code(s): N17.8 - Other acute kidney failure; N18.3 - Chronic kidney disease, stage 3 (moderate)
[2019-05-08] MEDS: CITALOPRAM 20 MG TABLET PO SCH (21:44)
[2019-05-08] MEDS: SENNOSIDES 1 TABLET PO SCH (21:44)
[2019-05-09 05:40] LABS: Basophils # (Auto) 0.1 K/mcL (0.0-0.3); Basophils % (Auto) 1.6 % (0.0-2.0); Eosinophils # (Auto) 1.2 K/mcL (0.0-0.7); Eosinophils % (Auto) 16.3 % (0.0-7.0); Granulocytes % (Auto) 53.4 % (38.0-78.0); Hematocrit 23.1 % (36.0-48.0); Hemoglobin 7.7 g/dL (12.0-15.0); Lymphocytes # (Auto) 1.6 K/mcL (1.5-4.8); Lymphocytes % (Auto) 22.1 % (15.5-49.0); Mean Cell Volume 91.5 fL (80.0-100.0); Mean Corpuscular HGB Conc 33.5 g/dL (31.0-36.0); Mean Platelet Volume 7.6 fL (7.4-10.4); Monocytes # (Auto) 0.5 K/mcL (0.1-0.9); Monocytes % (Auto) 6.6 % (1.0-12.0); Platelet Count 226 K/mcL (140-440); RBC 2.52 M/mcL (4.00-5.20); Red Cell Distribution Width 15.2 % (11.5-14.5); WBC 7.3 K/mcL (4.5-11.0)
[2019-05-09 06:10] LABS: ALT/SGPT < 5 U/l (0-40); AST/SGOT 14 U/l (0-37); Albumin 2.4 gm/dL (3.2-5.2); Albumin/Globulin Ratio 0.9 (1.0-2.3); Alkaline Phosphatase 55 U/L (39-117); Bilirubin,Direct < 0.2 mg/dL (0.0-0.3); Bilirubin,Total 0.4 mg/dL (0.0-1.0); Blood Urea Nitrogen 27 mg/dl (8-23); Calcium 8.1 mg/dl (8.6-10.4); Carbon Dioxide 26 mmol/L (22-30); Chloride 106 mmol/L (96-108); Globulin 2.7 gm/dL (2.2-3.7); Glomerular Filtration Rate 40; Glucose 113 mg/dL (70-105); Lactate Dehydrogenase 218 U/L (94-250); Phosphorous 2.2 mg/dL (2.7-4.5); Potassium 4.5 mmol/L (3.3-5.1); Sodium 142 mmol/L (133-145); Triglycerides 141 mg/dl (<150); Uric Acid 6.7 mg/dL (2.5-8.0)
[2019-05-09] MEDS: 0.9 % SODIUM CHLORIDE 10 ML SYRINGE IV SCH (06:42)
[2019-05-09] MEDS: INSULIN LISPRO 1 UNIT/0.01 ML UNIT SQ SCH (06:42)
[2019-05-09] MEDS: metFORMIN 500 MG TABLET PO SCH (06:44)
[2019-05-09] MEDS: LEVOTHYROXINE 100 MCG TABLET PO SCH (06:44)
[2019-05-09] MEDS: DOCUSATE SODIUM 100 MG CAPSULE PO SCH (08:04)
[2019-05-09] MEDS: VENLAFAXINE 150 MG CAP.XL.24H PO SCH (08:04)
[2019-05-09] MEDS: ASPIRIN 325 MG ENTERIC COATED TABLET PO SCH (08:04)
[2019-05-09] MEDS: ACETAMINOPHEN 500 MG TABLET PO SCH (08:04)
[2019-05-09] MEDS ORDERED: IRON SUCROSE COMPLEX 100 MG/5 ML VIAL IV SCH (09:00)
== END 2019-05-09 08:50 | DRG 481 ==
LOC: ED 07:11 → MEDSUR 11:47
PROVIDERS: ADMIT Internal Medicine; ATTEND Internal Medicine